=== PATIENT | female | born 1950 | race Caucasian/White ===

== ENCOUNTER 2021-01-13 06:28 | Day surgery (SDC) | payer OTHER ==
[2021-01-10 11:33] LABS: COVID AG,FIA SOURCE NASOPHARYNGEAL
[~2021-01-13] VITALS: Ht 147.3 cm; Wt 37.7 kg
[~2021-01-13 06:28] MED LIST: SODIUM CHLORIDE 0.9% 1,000 ML ONE
[2021-01-13] MEDS ORDERED: SODIUM CHLORIDE 0.9% 1,000 ML IV ONE (06:30)
[2021-01-13] MEDS ORDERED: FentaNYL CITRATE PF 100 MCG/2 ML VIAL ONE (06:49)
[2021-01-13] MEDS ORDERED: MIDAZOLAM HCL 5 MG/ML VIAL ONE (06:49)
[2021-01-13] MEDS ORDERED: BISO5TAB13 PO (08:17)
[2021-01-13] MEDS ORDERED: FAMO20 PO (08:17)
[2021-01-13] MEDS ORDERED: FLUT16H NASAL (08:17)
[2021-01-13] MEDS ORDERED: AMIT75 PO (08:17)
[2021-01-13] MEDS ORDERED: MONT-35 PO (08:17)
[2021-01-13] MEDS ORDERED: ALBU8HFA IH (08:17)
[2021-01-13] MEDS ORDERED: SIMV-260 PO (08:17)
[2021-01-13] MEDS ORDERED: LOSA25TA21 PO (08:17)
[2021-01-13] MEDS ORDERED: HALO2 PO (08:17)
[2021-01-13] MEDS ORDERED: MethylPREDNISolone SOD SUCC 125 MG/2 ML VIAL IVP ONE (09:00)
[2021-01-13] MEDS ORDERED: MethylPREDNISolone SOD SUCC 125 MG/2 ML VIAL ONE (09:27)
[2021-01-13] MEDS ORDERED: ALBUTEROL SULFATE 2.5 MG/0.5 ML NEB SOLUTION NEB ONE (16:49)
[2021-01-13] MEDS ORDERED: LIDOCAINE 2% 30 ML JELLY ONE (16:49)
[2021-01-13] MEDS ORDERED: BENZOCAINE 20% 50 MCG/SPRAY 57 GM ONE (16:49)
[2021-01-13] MEDS ORDERED: LIDOCAINE 4% 50 ML SOLUTION ONE (16:49)
[2021-01-13] MEDS ORDERED: OXYGEN THERAPY IH SCH (20:00)
== END 2021-01-13 10:25 | disposition home or self-care (01) ==
LOC: SURGERY 06:28
PROVIDERS: ATTEND Internal Medicine Critical Care Medicine
DX: J38.4 Edema of larynx (principal); B37.0 Candidal stomatitis; F17.210 Nicotine dependence, cigarettes, uncomplicated; I10 Essential (primary) hypertension; E78.5 Hyperlipidemia, unspecified; Z79.899 Other long term (current) drug therapy; Z98.890 Other specified postprocedural states
CPT/HCPCS: 31623; 31624; 71045; 87015; 87070; 87101; 87205; 87206; 87220; 87426; 88108; 88184; 88185; 88312; C9803; J2250; J2930; J3010; J7030; J7613; Z7610

== ENCOUNTER 2022-04-27 06:18 | Day surgery (SDC) | payer OTHER ==
[~2022-04-27] VITALS: Ht 152.4 cm; Wt 40.9 kg
[~2022-04-27 06:18] MED LIST changes: +ALBU8HFA IH; +AMIT75TA55 PO; +BISO5TAB13 PO; +FAMO20 PO; +FLUT16H NASAL; +HALO2 PO; +LOSA-381 PO; +MONT-35 PO; +SIMV-260 PO; -SODIUM CHLORIDE 0.9% 1,000 ML ONE
[2022-04-27 06:54] LABS: COVID AG,FIA SOURCE NASOPHARYNGEAL
[2022-04-27] MEDS ORDERED: SODIUM CHLORIDE 0.9% 1,000 ML IV ONE (07:00)
[2022-04-27] MEDS ORDERED: FAMO40TA7 PO (07:10)
[2022-04-27] MEDS ORDERED: BISO5TAB33 PO (07:10)
[2022-04-27] MEDS ORDERED: D-ME473S53 PO (07:10)
[2022-04-27] MEDS ORDERED: SIMV-43 PO (07:10)
[2022-04-27] MEDS ORDERED: MONT-40 PO (07:10)
[2022-04-27] MEDS ORDERED: CETI10TA58 PO (07:10)
[2022-04-27] MEDS ORDERED: SODIUM CHLORIDE 0.9% 1,000 ML ONE (07:28)
[2022-04-27] MEDS ORDERED: MIDAZOLAM HCL 5 MG/ML VIAL ONE (07:50)
[2022-04-27] MEDS ORDERED: FentaNYL CITRATE PF 100 MCG/2 ML VIAL ONE (07:50)
[2022-04-27] MEDS ORDERED: MethylPREDNISolone SOD SUCC 125 MG/2 ML VIAL IVP ONE (09:15)
[2022-04-27] MEDS ORDERED: PROMETH/PHENYLEPHRINE/CODEINE 5 ML ORAL.SYG PO ONE (09:30)
[2022-04-27] MEDS ORDERED: MethylPREDNISolone SOD SUCC 125 MG/2 ML VIAL ONE (09:33)
[2022-04-27] MEDS ORDERED: BENZOCAINE 20% 50 MCG/SPRAY 57 GM ONE (10:37)
[2022-04-27] MEDS ORDERED: LIDOCAINE 2% 11 ML JELLY ONE (10:37)
[2022-04-27] MEDS ORDERED: ALBUTEROL SULFATE 2.5 MG/0.5 ML NEB SOLUTION NEB ONE (10:37)
[2022-04-27] MEDS ORDERED: LIDOCAINE 4% 50 ML SOLUTION ONE (10:37)
[2022-04-27] MEDS ORDERED: OXYGEN THERAPY IH SCH (20:00)
== END 2022-04-27 11:00 | disposition home or self-care (01) ==
LOC: SURGERY 06:18
PROVIDERS: ATTEND Internal Medicine Critical Care Medicine
DX: J38.4 Edema of larynx (principal); B37.0 Candidal stomatitis; F17.210 Nicotine dependence, cigarettes, uncomplicated; I10 Essential (primary) hypertension; Z79.82 Long term (current) use of aspirin; Z98.49 Cataract extraction status, unspecified eye; Z72.89 Other problems related to lifestyle
CPT/HCPCS: 31623; 87206; 87101; 87220; 87070; 87015; 31624; 71045; 87426; J3010; J2930; J2370; J2250; Q9967; J7030; C9803; J7613; Z7610

== ENCOUNTER 2025-01-22 06:48 | Day surgery (SDC) | payer OTHER ==
[~2025-01-22] VITALS: Ht 144.8 cm; Wt 43.6 kg
[~2025-01-22 06:48] MED LIST changes: +ALBU18HF12 IH; -ALBU8HFA IH; -AMIT75TA55 PO; +AMIT75TA6 PO; +BISO5TAB33 PO; +CETI10TA58 PO; +FAMO40TA7 PO; -FLUT16H NASAL; +FLUT16SP NASAL; +MONT-40 PO; +PROM473S6 PO; +SIMV-43 PO
[2025-01-22] MEDS: SODIUM CHLORIDE 0.9% 1,000 ML IV ONE (07:35)
[2025-01-22] MEDS ORDERED: FentaNYL CITRATE PF 100 MCG/2 ML VIAL ONE (08:45)
[2025-01-22] MEDS ORDERED: MIDAZOLAM HCL 2 MG/2 ML VIAL ONE (08:45)
[2025-01-22 09:02] VITALS: PULSE 65; PULSE 73; RESP 14; RESP 25; O2SAT 100; O2SAT 99
[2025-01-22] MEDS ORDERED: MethylPREDNISolone SOD SUCC 125 MG/2 ML VIAL ONE (09:39)
[2025-01-22] MEDS: MethylPREDNISolone SOD SUCC 125 MG/2 ML VIAL IVP ONE (09:54)
== END 2025-01-22 13:30 | disposition home or self-care (01) ==
LOC: SURGERY 06:48
PROVIDERS: ATTEND Internal Medicine Critical Care Medicine
DX: R05.3 Chronic cough (principal); R04.2 Hemoptysis; J38.4 Edema of larynx; B37.0 Candidal stomatitis; E11.9 Type 2 diabetes mellitus without complications; E78.00 Pure hypercholesterolemia, unspecified; Z72.89 Other problems related to lifestyle; Z98.890 Other specified postprocedural states; Z79.899 Other long term (current) drug therapy
CPT/HCPCS: 31623; 87206; 87101; 87220; 87070; 88108; 87015; 31624; 94640; 71045; J3010; J2250; J2919